=== PATIENT | male | born 1950 | race Caucasian/White ===

== ENCOUNTER 2017-11-08 22:01 | Inpatient (IN) | payer MEDICARE, OTHER ==
[~2017-11-08] VITALS: Ht 180.3 cm; Wt 109.2 kg
[~2017-11-08 22:01] MED LIST: CENTTAB9 PO; LOVA20TA PO
[2017-11-08 22:17] VITALS: BP 124/89; PULSE 98; RESP 18; TEMP 98.5; O2SAT 98
[2017-11-08] MEDS ORDERED: LISI-515 PO (23:00)
[2017-11-08] MEDS ORDERED: COQ-100C5 (23:00)
[2017-11-08] MEDS ORDERED: LOVA40TA PO (23:00)
[2017-11-08] MEDS ORDERED: SULF500T34 PO (23:00)
[2017-11-08] MEDS ORDERED: CENTCHW4 CHEW (23:00)
[2017-11-08] MEDS ORDERED: AMLO10TA2 PO (23:00)
[2017-11-08] MEDS ORDERED: PRED5TAB PO (23:00)
[2017-11-08] MEDS ORDERED: TAMS5CAP PO (23:01)
--- NOTE | 2017-11-08 23:06 | PD ---
HPI Chief Complaint: Fall Time Seen by Provider: 22:57 Travel History International Travel<30 days: No Contact w/Intl Traveler<30days: No Traveled to known affect area: No History of Present Illness HPI 67-year-old male presents for evaluation of right ankle pain. Prior to arrival he slipped and fell, injuring his right ankle. He has been unable to put any weight on his right ankle. Pain is a throbbing pain, constant, worse with movement. He reports abrasion to the right alonzo as well. Denies any other injuries and he has no other complaints at this time. PFSH Past Medical History Arthritis: No Asthma: No Autoimmune Disease: No Blood Disorders: No Heart Rhythm Problems: No Cancer: Yes (LEUKEMIA) Cardiovascular Problems: No High Cholesterol: Yes Chemotherapy: Yes Chest Pain: No Congestive Heart Failure: No COPD: No Diabetes: No Diminished Hearing: No Endocrine: No Gastrointestinal Disorders: No GERD: Yes (sometimes at night) Genitourinary: No Hiatal Hernia: No Heparin Induced Thrombocytopen: No Hypertension: No Immune Disorder: No Implanted Vascular Access Dvce: Yes Medical other: Yes (CHEMO FINISHED Sep.) Musculoskeletal: No Neurologic: No Psychiatric: No Reproductive: No Respiratory: No Immunizations Current: Yes Radiation Therapy: No Sickle Cell Disease: No Sleep Apnea: No Thyroid Disease: No Ulcer: No Tetanus Vaccination: Unknown Influenza Vaccination: No Past Surgical History Abdominal Surgery: No AICD: No Arteriovenous Shunt: No Cardiac Surgery: No Endocrine Surgery: Yes Eye Surgery: No Genitourinary Surgery: No Gynecologic Surgery: No Insulin Pump: No Joint Replacement: No Neurologic Surgery: No Oral Surgery: Yes Pacemaker: No Thoracic Surgery: No 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) Social History Alcohol Use: Yes (occ) Tobacco Use: Yes (QUIT ) Substance Use: No Allergies-Medications (Allergen,Severity, Reaction): Coded Allergies: No Known Allergies (Unverified Allergy, Unknown, 11/09/17) Reported Meds & Prescriptions Reported Meds & Active Scripts Active Reported Flomax (Tamsulosin HCl) 0.4 Mg Cap 0.4 Mg PO HS Sulfasalazine DR (Sulfasalazine) 500 Mg Tab 1,000 Mg PO BID Centrum (Multiple Vitamins W/ Minerals) 1 Chew 1 Tab CHEW DAILY Prednisone 5 Mg Tab 3 Mg PO DAILY Coq-10 Tr (Coenzyme Q10 (Ubidecarenone)) 100 Mg Cap Lovastatin 40 Mg Tab 40 Mg PO DAILY Lisinopril 20 Mg Tab 20 Mg PO DAILY Amlodipine (Amlodipine Besylate) 10 Mg Tab 10 Mg PO DAILY Review of Systems Except as stated in HPI: all other systems reviewed are Neg Physical Exam Narrative GENERAL: Well-nourished male who appears uncomfortable. SKIN: Warm and dry. Abrasion to the right alonzo. Ecchymosis to the medial lateral right ankle. HEAD: Atraumatic. Normocephalic. EYES: Pupils equal and round. No scleral icterus. No injection or drainage. ENT: No nasal bleeding or discharge. Mucous membranes pink and moist. NECK: Trachea midline. No JVD. CARDIOVASCULAR: Regular rate and rhythm. No murmur appreciated. RESPIRATORY: No accessory muscle use. Clear to auscultation. Breath sounds equal bilaterally. GASTROINTESTINAL: Abdomen soft, non-tender, nondistended. Hepatic and splenic margins not palpable. MUSCULOSKELETAL: Soft tissue swelling around the right ankle with associated generalized tenderness to palpation of the right ankle. The Achilles tendon is intact and nontender. Limited range of motion of the right ankle secondary to pain. 2+ dorsalis pedis pulse. Distal sensation is preserved. NEUROLOGICAL: Awake and alert. No obvious cranial nerve deficits. Motor grossly within normal limits. Normal speech. Data Data Last Documented VS Vital Signs Date Time Temp Pulse Resp B/P (MAP) Pulse Ox O2 Delivery O2 Flow Rate FiO2 11/08/17 23:50 96 20 154/80 (104) 96 Room Air 11/08/17 22:17 98.5 Orders Orders Tibia/Fibula (Ap/Lat) (11/08/17 ) Ankle, Complete ([id number]) (11/08/17 ) Ice/Cold Pack (11/08/17 23:03) Iv Access Insert/Monitor (11/08/17 23:03) Morphine Inj (Morphine Inj) (11/08/17 23:15) Ondansetron Inj (Zofran Inj) (11/08/17 23:15) Hydromorphone Pf Inj (Dilaudid Pf Inj) (11/09/17 00:30) Hydromorphone Pf Inj (Dilaudid Pf Inj) (11/09/17 00:30) Complete Blood Count With Diff (11/09/17 01:03) Basic Metabolic Panel (Bmp) (11/09/17 01:03) Act Partial Throm Time (Ptt) (11/09/17 01:03) Prothrombin Time / Inr (Pt) (11/09/17 01:03) Admit Order (Ed Use Only) (11/09/17 01:11) Consult Orthopedic (11/09/17 ) [facility] Medical Decision Making Medical Screen Exam Complete: Yes Emergency Medical Condition: Yes Medical Record Reviewed: Yes Interpretation(s) X-ray imaging reveals FINDINGS: Three view exam was performed of the right ankle. Bimalleolar fracture 3 distal diaphysis of the fibula as well as the base of the medial malleolus and a second avulsion fracture off the tip of the medial malleolus. There is some asymmetry of the ankle mortise. Mild regional soft tissue swelling. Differential Diagnosis Right ankle fracture, sprain, Lisfranc injury, dislocation Narrative Course X-ray imaging of the right ankle, tibia-fibula has been ordered. He will be given an ice pack, morphine, Zofran. X-ray imaging reveals a bimalleolar fracture. A Harris splint was applied. Discussed with Dr. Castorena who would like the patient admitted to the medicine team with consultation to himself. Discussed with the patient who is agreeable. Diagnosis Primary Impression: Bimalleolar fracture of right ankle Admitting Information Admitting Physician Requests: Víctor Stack Nov 08, 2017 23:06
[2017-11-08] MEDS ORDERED: ONDANSETRON HCL 4 MG/2 ML VIAL IV PUSH ONE (23:15)
[2017-11-08] MEDS ORDERED: MORPHINE SULFATE 4 MG/ML INJ IV PUSH ONE (23:15)
[2017-11-08 23:50] VITALS: BP 154/80; PULSE 96; RESP 20; O2SAT 96
--- NOTE | 2017-11-09 00:24 | RADRPT ---
EXAM DATE/TIME: 11/08/2017 23:13 [facility] COMPARISON: No previous studies available for comparison. INDICATIONS : Right ankle pain from a fall. MEDICAL HISTORY : Leukemia. Hypertension SURGICAL HISTORY : None. ENCOUNTER: Initial ACUITY: 1 day PAIN SCORE: 10/10 LOCATION: Right ankle FINDINGS: Two view examination of the right tibia demonstrates bimalleolar fracture involving the distal diaphy sis of the fibula as well as the base of the medial malleolus. Small avulsion fracture off the medial malleolar tip as well. CONCLUSION: Bimalleolar fracture as above. Al Haro MD on November 09, 2017 at 0:22 Board Certified Radiologist. This report was verified electronically.
--- NOTE | 2017-11-09 00:26 | RADRPT ---
EXAM DATE/TIME: 11/08/2017 23:21 [facility] COMPARISON: No previous studies available for comparison. INDICATIONS : Right ankle pain from a fall. MEDICAL HISTORY : Leukemia. Hypertension SURGICAL HISTORY : None. ENCOUNTER: Initial ACUITY: 1 day PAIN SCORE: 10/10 LOCATION: Right ankle FINDINGS: Three view exam was performed of the right ankle. Bimalleolar fracture 3 distal diaphysis of the fibu la as well as the base of the medial malleolus and a second avulsion fracture off the tip of the medi al malleolus. There is some asymmetry of the ankle mortise. Mild regional soft tissue swelling. CONCLUSION: Bimalleolar fracture as above. Al Haro MD on November 09, 2017 at 0:24 Board Certified Radiologist. This report was verified electronically.
[2017-11-09] MEDS ORDERED: HYDROmorphone HCL PF 1 MG/ML VIAL IV PUSH ONE (00:30)
[2017-11-09] MEDS ORDERED: HYDROmorphone HCL PF 2 MG/ML VIAL IV PUSH ONE (00:30)
[2017-11-09 01:40] LABS: AUTOMATED NEUTROPHIL # 7.6 TH/MM3 (1.8-7.7); BASOPHIL # 0.1 TH/MM3 (0-0.2); BASOPHIL % 0.5 % (0.0-2.0); EOSINOPHIL # 0.1 TH/MM3 (0-0.4); EOSINOPHIL % 1.3 % (0.0-4.0); HEMATOCRIT 42.2 % (39.0-51.0); HEMOGLOBIN 14.4 GM/DL (13.0-17.0); LYMPHOCYTE # 1.9 TH/MM3 (1.0-4.8); MEAN CELL VOLUME 93.8 FL (80.0-100.0); MEAN CORPUSCULAR HGB CONC 34.1 % (32.0-36.0); MEAN PLATELET VOLUME 8.3 FL (7.0-11.0); MONO % 9.4 % (0.0-8.0); NEUT % 70.8 % (16.0-70.0); PLATELET COUNT 191 TH/MM3 (150-450); RED CELL DISTRIBUTION WIDTH 13.8 % (11.6-17.2); WHITE BLOOD COUNT 10.7 TH/MM3 (4.0-11.0)
[2017-11-09] MEDS: SODIUM CHLOR 0.9% 1000 ML INJ 1,000 ML IV SCH ×4 (01:42→20:34)
[2017-11-09] MEDS ORDERED: LACTULOSE SYRUP 20 GM/30 ML CUP PO PRN (01:45)
[2017-11-09] MEDS ORDERED: SODIUM CHLORIDE 0.9% FLUSH 10 ML FLUSH IV FLUSH PRN (01:45)
[2017-11-09] MEDS ORDERED: MAGNESIUM HYDROXIDE SUSP 30 ML CUP PO PRN ×2 (01:45→10:30)
[2017-11-09] MEDS ORDERED: ACETAMINOPHEN 325 MG TAB PO PRN (01:45)
[2017-11-09] MEDS ORDERED: NALOXONE HCL 0.4 MG/ML AMP IV PUSH PRN ×2 (01:45→10:30)
[2017-11-09] MEDS ORDERED: BISACODYL 10 MG SUPP RECTAL PRN (01:45)
[2017-11-09] MEDS ORDERED: SENNOSIDES 8.6 MG TAB PO PRN (01:45)
[2017-11-09] MEDS ORDERED: ONDANSETRON HCL 4 MG/2 ML VIAL IVP PRN ×2 (01:45→10:30)
--- NOTE | 2017-11-09 01:51 | HHI.HP ---
[facility] Primary Care Physician Korin Burkett MD Admission Diagnosis Right ankle fracture Diagnoses: Travel History International Travel<30 Days: No Contact w/Intl Traveler <30 Da: No Traveled to Known Affected Are: No History of Present Illness 67-year-old male with a past medical history significant for history of leukemia , polymyalgia rheumatica, hypertension and hyperlipidemia presents to the emergency department for evaluation of right ankle pain. The patient reports he was playing with his grandsons when he slipped on a wet floor. He states his foot went underneath the recliner and his grandson sat forward in the recliner crushing his foot. The patient reports that he fell to the ground and attempted to stand up. At that time he had excruciating pain in his right ankle and came in to the emergency department for further evaluation. He denies any other symptoms such as shortness of breath, chest pain, nausea/ vomiting/diarrhea, illness, dysuria. Review of Systems Except as stated in HPI: all other systems reviewed are Neg Past Family Social History Past Medical History History of leukemia in remission for the past 3 years Polymyalgia rheumatica Hypertension Hyperlipidemia Past Surgical History Tonsillectomy Multiple procedures including port placement and bone marrow biopsy associated with leukemia Reported Medications Reported Meds & Active Scripts Active Reported Flomax (Tamsulosin HCl) 0.4 Mg Cap 0.4 Mg PO HS Sulfasalazine DR (Sulfasalazine) 500 Mg Tab 1,000 Mg PO BID Centrum (Multiple Vitamins W/ Minerals) 1 Chew 1 Tab CHEW DAILY Prednisone 5 Mg Tab 3 Mg PO DAILY Coq-10 Tr (Coenzyme Q10 (Ubidecarenone)) 100 Mg Cap Lovastatin 40 Mg Tab 40 Mg PO DAILY Lisinopril 20 Mg Tab 20 Mg PO DAILY Amlodipine (Amlodipine Besylate) 10 Mg Tab 10 Mg PO DAILY Allergies: Coded Allergies: No Known Allergies (Unverified Allergy, Unknown, 11/09/17) Family History Father with CAD Social History Quit smoking in 2013. Denies alcohol and illicit drugs. Physical Exam Vital Signs Vital Signs Date Time Temp Pulse Resp B/P (MAP) Pulse Ox O2 Delivery O2 Flow Rate FiO2 3/17/18 23:50 96 20 154/80 (104) 96 Room Air 11/08/17 22:17 98.5 98 18 124/89 (101) 98 Physical Exam GENERAL: Obese, male sitting in bed SKIN: No rashes, ecchymoses or lesions. Cool and dry. HEAD: Atraumatic. Normocephalic. No temporal or scalp tenderness. EYES: Pupils equal round and reactive. Extraocular motions intact. No scleral icterus. No injection or drainage. ENT: Nose without bleeding, purulent drainage or septal hematoma. Throat without erythema, tonsillar hypertrophy or exudate. Uvula midline. Airway patent. NECK: Trachea midline. No JVD or lymphadenopathy. Supple, nontender, no meningeal signs. CARDIOVASCULAR: Regular rate and rhythm without murmurs, gallops, or rubs. RESPIRATORY: Clear to auscultation. Breath sounds equal bilaterally. No wheezes , rales, or rhonchi. GASTROINTESTINAL: Abdomen soft, non-tender, nondistended. No hepato-splenomegaly , or palpable masses. No guarding. MUSCULOSKELETAL: Extremities without clubbing, cyanosis, or edema. No calf tenderness. Right leg splinted, neurovascularly intact. Able to wiggle the toes of his right foot. NEUROLOGICAL: Awake and alert. Cranial nerves II through XII intact. Motor and sensory grossly within normal limits. Normal speech. Laboratory Laboratory Tests Test 11/09/17 01:10 White Blood Count 10.7 Red Blood Count 4.50 Hemoglobin 14.4 Hematocrit 42.2 Mean Corpuscular Volume 93.8 Mean Corpuscular Hemoglobin 32.0 Mean Corpuscular Hemoglobin Concent 34.1 Red Cell Distribution Width 13.8 Platelet Count 191 Mean Platelet Volume 8.3 Neutrophils (%) (Auto) 70.8 Lymphocytes (%) (Auto) 18.0 Monocytes (%) (Auto) 9.4 Eosinophils (%) (Auto) 1.3 Basophils (%) (Auto) 0.5 Neutrophils # (Auto) 7.6 Lymphocytes # (Auto) 1.9 Monocytes # (Auto) 1.0 Eosinophils # (Auto) 0.1 Basophils # (Auto) 0.1 CBC Comment DIFF FINAL Differential Comment Result Diagram: 11/09/17 0110 Caprini VTE Risk Assessment Caprini VTE Risk Assessment: Mod/High Risk (score >= 2) Caprini Risk Assessment Model Point Value = 1 Point Value = 2 Point Value = 3 Point Value = 5 Age 41-60 Minor surgery BMI > 25 kg/m2 Swollen legs Varicose veins or History of unexplained or recurrent spontaneous Oral contraceptives or hormone replacement Sepsis (< 1 month) Serious lung disease, including pneumonia (< 1 month) Abnormal pulmonary function Acute myocardial infarction Congestive heart failure (< 1 month) History of inflammatory bowel disease Medical patient at bed rest Age 61-74 Arthroscopic surgery Major open surgery (> 45 min) Laparoscopic surgery (> 45 min) Malignancy Confined to bed (> 72 hours) Immobilizing plaster cast Central venous access Age >= 75 History of VTE Family history of VTE Factor V Leiden Prothrombin [id number] Lupus anticoagulant Anticardiolipin antibodies Elevated serum homocysteine Heparin-induced thrombocytopenia Other congenital or acquired thrombophilia Stroke (< 1 month) Elective arthroplasty Hip, pelvis, or leg fracture Acute spinal cord injury (< 1 month) Prophylaxis Regimen Total Risk Factor Score Risk Level Prophylaxis Regimen 0-1 Low Early ambulation 2 Moderate Order ONE of the following: *Sequential Compression Device (SCD) *Heparin 5000 units SQ BID 3-4 Higher Order ONE of the following medications: *Heparin 5000 units SQ TID *Enoxaparin/Lovenox 40 mg SQ daily (WT < 150 kg, CrCl > 30 mL/min) *Enoxaparin/Lovenox 30 mg SQ daily (WT < 150 kg, CrCl > 10-29 mL/min) *Enoxaparin/Lovenox 30 mg SQ BID (WT < 150 kg, CrCl > 30 mL/min) AND/OR *Sequential Compression Device (SCD) 5 or more Highest Order ONE of the following medications: *Heparin 5000 units SQ TID (Preferred with Epidurals) *Enoxaparin/Lovenox 40 mg SQ daily (WT < 150 kg, CrCl > 30 mL/min) *Enoxaparin/Lovenox 30 mg SQ daily (WT < 150 kg, CrCl > 10-29 mL/min) *Enoxaparin/Lovenox 30 mg SQ BID (WT < 150 kg, CrCl > 30 mL/min) AND *Sequential Compression Device (SCD) Assessment and Plan Assessment and Plan Assessment/plan: 1. Bimalleolar right ankle fracture Status post trauma Dilaudid for pain Orthopedic surgery consulted, appreciate assistance Nothing by mouth 2. Polymyalgia rheumatica Continuing home medications 3. Hypertension/hyperlipidemia Continue home medications FEN NPO Electrolytes: BMP pending, monitor and replete when necessary NS at 125 cc/hr Holding for aquatic anticoagulation in anticipation of operative intervention Physician Certification 2 Midnight Certification Type: Admission for Inpatient Services Order for Inpatient Services The services are ordered in accordance with Medicare regulations or non- Medicare payer requirements, as applicable. In the case of services not specified as inpatient-only, they are appropriately provided as inpatient services in accordance with the 2-midnight benchmark. Estimated LOS (days): 2 2 days is the estimated time the patient will need to remain in the hospital, assuming treatment plan goals are met and no additional complications. Post-Hospital Plan: Not yet determined Andressa Maravilla MD Nov 09, 2017 01:51
[2017-11-09 01:59] LABS: BICARBONATE 29.1 MEQ/L (21.0-32.0); CALCIUM 8.6 MG/DL (8.5-10.1); CREATININE 1.34 MG/DL (0.60-1.30)
[2017-11-09 02:08] LABS: PROTHROMBIN TIME - PATIENT 10.3 SEC (9.8-11.6)
[2017-11-09] MEDS: HYDROmorphone HCL PF 2 MG/ML VIAL IV PUSH PRN ×3 (02:32→22:44)
[2017-11-09] MEDS ORDERED: SODIUM CHLORID 0.9% 500 ML IV PRN (03:15)
[2017-11-09] MEDS ORDERED: CHLORHEXIDINE GLUCONATE 2 % 1 PACK (2 CLOTHS) TOPICAL PRN (03:15)
[2017-11-09] MEDS ORDERED: METOPROLOL TARTRATE 25 MG TAB PO PRN (03:15)
[2017-11-09] MEDS ORDERED: INSULIN HUMAN REGULAR 1,000 UNITS/10 ML VIAL SQ PRN (03:15)
[2017-11-09] MEDS ORDERED: POVIDONE IODINE 5% (ANTISEPSIS KIT) 4 APPLICATIONS EACH NARE PRN (03:15)
[2017-11-09] MEDS ORDERED: LACTATED RINGER'S 1000 ML IV PRN (03:15)
[2017-11-09 04:00] VITALS: BP 127/64; PULSE 97; RESP 20; TEMP 97.9; O2SAT 95
[2017-11-09] MEDS: PRAVASTATIN SOD 40 MG TAB PO SCH (07:34)
[2017-11-09] MEDS: LISINOPRIL 20 MG TAB PO SCH (07:34)
[2017-11-09 08:00] VITALS: BP 134/74; PULSE 86; RESP 18; TEMP 97.7; O2SAT 93
[2017-11-09] MEDS ORDERED: GENTAMICIN SULFATE 80 MG/2 ML VIAL ONE (08:10)
[2017-11-09] MEDS ORDERED: DOCUSATE SODIUM 50 MG/SENNA 8.6 MG TAB PO SCH (09:00)
[2017-11-09] MEDS: SODIUM CHLORIDE 0.9% FLUSH 10 ML FLUSH IV FLUSH SCH ×2 (09:00→20:39)
--- NOTE | 2017-11-09 10:18 | PD.CONS ---
HPI Service Orthopedic Surgeons Consult Requested By Andressa Maravilla Reason for Consult Unstable fracture of the right ankle Primary Care Physician Korin Burkett MD Admission Diagnosis Right ankle fracture Diagnoses: Chief Complaint: Right ankle pain and inability to ambulate History of Present Illness This patient is a 67-year-old white male who was playing around with his grandson. He slipped and fell sustaining an injury to his right ankle. He had no loss of consciousness. He was unable to bear weight because of such significant pain in the ankle. He presented to [facility]. X-ray showed evidence of a trimalleolar fracture subluxation of the right ankle. I have been asked to see him in consultation regarding the same Review of Systems Constitutional: DENIES: Diaphoretic episodes, Fatigue, Fever, Weight gain, Weight loss, Chills, Dizziness, Change in appetite, Night Sweats Endocrine: DENIES: Heat/cold intolerance, Polydipsia, Polyuria, Polyphagia Eyes: DENIES: Blurred vision, Diplopia, Eye inflammation, Eye pain, Vision loss , Photosensitivity, Double Vision Ears, nose, mouth, throat: DENIES: Tinnitus, Hearing loss, Vertigo, Nasal discharge, Oral lesions, Throat pain, Hoarseness, Ear Pain, Running Nose, Epistaxis, Sinus Pain, Toothache, Odynophagia Respiratory: DENIES: Apneas, Cough, Snoring, Wheezing, Hemoptysis, Sputum production, Shortness of breath Cardiovascular: DENIES: Chest pain, Palpitations, Syncope, Dyspnea on Exertion , PND, Lower Extremity Edema, Orthopnea, Claudication Gastrointestinal: DENIES: Abdominal pain, Black stools, Bloody stools, Constipation, Diarrhea, Nausea, Vomiting, Difficulty Swallowing, Anorexia Genitourinary: DENIES: Sexual dysfunction, Urinary frequency, Urinary incontinence, Urgency, Hematuria, Dysuria, Nocturia, Penile Discharge, Testicular Pain, Testicular Swelling Musculoskeletal: DENIES: Joint pain, Muscle aches, Stiffness, Joint Swelling, Back pain, Neck pain Integumentary: DENIES: Abnormal pigmentation, Nail changes, Pruritus, Rash Hematologic/lymphatic: DENIES: Bruising, Lymphadenopathy Immunologic/allergic: DENIES: Eczema, Urticaria Neurologic: DENIES: Abnormal gait, Headache, Localized weakness, Paresthesias, Seizures, Speech Problems, Tremor, Poor Balance Psychiatric: DENIES: Anxiety, Confusion, Mood changes, Depression, Hallucinations, Agitation, Suicidal Ideation, Homicidal Ideation, Delusions Past Family Social History Past Medical History History of leukemia in remission for the past 3 years Polymyalgia rheumatica Hypertension Hyperlipidemia Past Surgical History Tonsillectomy Multiple procedures including port placement and bone marrow biopsy associated with leukemia Allergies: Coded Allergies: No Known Allergies (Unverified Allergy, Unknown, 11/09/17) Active Ordered Medications Current Medications Medications (Trade) Dose Ordered Sig/Merlene Route Start Time Stop Time Status Last Admin Sodium Chloride 1,000 ml @ 125 mls/hr Q8H IV 11/09/17 01:42 11/09/17 01:42 (NS Flush) 2 ml UNSCH PRN IV FLUSH 11/09/17 01:45 (NS Flush) 2 ml BID IV FLUSH 11/09/17 09:00 (Tylenol) 650 mg Q4H PRN PO 11/09/17 01:45 (Zofran Inj) 4 mg Q6H PRN IVP 11/09/17 01:45 (Narcan Inj) 0.4 mg UNSCH PRN IV PUSH 11/09/17 01:45 (Maxine-Colace) 1 tab BID PO 11/09/17 09:00 11/09/17 07:34 (Milk Of Magnesia Liq) 30 ml Q12H PRN PO 11/09/17 01:45 (Senokot) 17.2 mg Q12H PRN PO 11/09/17 01:45 (Dulcolax Supp) 10 mg DAILY PRN RECTAL 11/09/17 01:45 (Lactulose Liq) 30 ml DAILY PRN PO 11/09/17 01:45 (Dilaudid Pf Inj) 2 mg Q3H PRN IV PUSH 11/09/17 01:45 11/09/17 02:32 (Norvasc) 10 mg DAILY PO 11/09/17 09:00 11/09/17 07:34 (Prinivil) 20 mg DAILY PO 11/09/17 09:00 11/09/17 07:34 (Pravachol) 40 mg DAILY PO 3/18/18 09:00 11/09/17 07:34 (Deltasone) 3 mg DAILY PO 11/09/17 09:00 (Azulfidine Ec) 1,000 mg BID PO 11/09/17 09:00 (Flomax) 0.4 mg HS PO 11/09/17 21:00 Lactated Ringer's 1,000 ml @ 30 mls/hr Q24H PRN IV 11/09/17 03:15 11/12/17 03:14 Sodium Chloride 500 ml @ 30 mls/hr [id number] PRN IV 11/09/17 03:15 11/12/17 03:14 (Lopressor) 25 mg STORAGE [employer]INEER PRN PO 11/09/17 03:15 11/12/17 03:14 (Betadine 5% Antisepsis Kit) 1 applic STORAGE ENGINEER PRN EACH NARE 11/09/17 03:15 11/12/17 03:14 (Chlorhexidine 2% Cloth) 3 pack STORAGE ENGINEER PRN TOPICAL 11/09/17 03:15 11/12/17 03:14 (NovoLIN R INJ) See Protocol Table ... STORAGE ENGINEER PRN SQ 11/09/17 03:15 11/12/17 03:14 Reported Meds & Active Scripts Active Reported Flomax (Tamsulosin HCl) 0.4 Mg Cap 0.4 Mg PO HS Sulfasalazine DR (Sulfasalazine) 500 Mg Tab 1,000 Mg PO BID Centrum (Multiple Vitamins W/ Minerals) 1 Chew 1 Tab CHEW DAILY Prednisone 5 Mg Tab 3 Mg PO DAILY Coq-10 Tr (Coenzyme Q10 (Ubidecarenone)) 100 Mg Cap Lovastatin 40 Mg Tab 40 Mg PO DAILY Lisinopril 20 Mg Tab 20 Mg PO DAILY Amlodipine (Amlodipine Besylate) 10 Mg Tab 10 Mg PO DAILY Family History Father with CAD Social History Quit smoking in 2013. Denies alcohol and illicit drugs. Physical Exam Vital Signs Vital Signs Date Time Temp Pulse Resp B/P (MAP) Pulse Ox O2 Delivery O2 Flow Rate FiO2 11/09/17 08:00 97.7 86 18 134/74 (94) 93 11/09/17 04:00 97.9 97 20 127/64 (85) 95 11/08/17 23:50 96 20 154/80 (104) 96 Room Air 11/08/17 22:17 98.5 98 18 124/89 (101) 98 Physical Exam HEENT: Normocephalic atraumatic pupils equal round reactive. NECK: Supple. No abnormal masses. Full range of motion. CHEST: Clear to auscultation with no rales or rhonchi's or wheezes. HEART: Regular rate and rhythm. No murmurs. ABDOMEN: Soft, nontender, no masses. Normal active bowel sounds. GENITOURINARY: Deferred MUSCULOSKELETAL: He is in a splint. There is some external rotation deformity of the right ankle. Sensation is normal. He wiggles his toes. Cap refill is satisfactory. Laboratory Laboratory Tests Test 11/09/17 01:10 White Blood Count 10.7 Red Blood Count 4.50 Hemoglobin 14.4 Hematocrit 42.2 Mean Corpuscular Volume 93.8 Mean Corpuscular Hemoglobin 32.0 Mean Corpuscular Hemoglobin Concent 34.1 Red Cell Distribution Width 13.8 Platelet Count 191 Mean Platelet Volume 8.3 Neutrophils (%) (Auto) 70.8 Lymphocytes (%) (Auto) 18.0 Monocytes (%) (Auto) 9.4 Eosinophils (%) (Auto) 1.3 Basophils (%) (Auto) 0.5 Neutrophils # (Auto) 7.6 Lymphocytes # (Auto) 1.9 Monocytes # (Auto) 1.0 Eosinophils # (Auto) 0.1 Basophils # (Auto) 0.1 CBC Comment DIFF FINAL Differential Comment Prothrombin Time 10.3 Prothromb Time International Ratio 1.0 Activated Partial Thromboplast Time 22.6 Blood Urea Nitrogen 17 Creatinine 1.34 Random Glucose 150 Calcium Level 8.6 Sodium Level 140 Potassium Level 3.3 Chloride Level 101 Carbon Dioxide Level 29.1 Anion Gap 10 Estimat Glomerular Filtration Rate 53 Result Diagram: 11/09/17 0110 11/09/17 0110 Imaging Review of the x-rays and review of the radiologist's interpretation shows evidence of a trimalleolar fracture of the right ankle with a small posterior malleolar fragment and mild comminution of the medial malleolus Assessment & Plan Assessment and Plan Trimalleolar fracture of the right ankle. PLAN: Surgical treatment is recommended: Open treatment internal fixation right ankle fracture with possible internal fixation of the posterior malleolar fragment. Consent: There are risks with this injury and surgery including infection, bleeding, loss of motion, continued pain, need for further surgery, neurologic or vascular injury. He understands these issues and wishes to proceed forward with surgery as outlined above. Surgery today when time is available Jose Gonzalez MD Nov 09, 2017 10:18
--- NOTE | 2017-11-09 10:22 | PD.OP ---
cc: Jose Gonzalez MD Operative Report Date of Surgery: Nov 09, 2017 Preoperative Diagnosis: Trimalleolar fracture, right ankle Postoperative Diagnosis: Same Procedure: Open treatment internal fixation right ankle trimalleolar fracture without fixation of the posterior malleolus Anesthesia: Gen. Surgeon: Jose Gonzalez Mending Carrier(s): LESIA Hay Operation and Findings: EBL: 50 cc INDICATION: Patient is a 67-year-old male who sustained the above fracture late yesterday. He is felt to be a candidate for surgical treatment. NOTE: Deisi Hay PA-C was present for the entire surgical procedure as my residential real estate assistant. In my medical opinion her skill and care was necessary for the proper management of this patient. PROCEDURE: The patient brought to the operating room and anesthetized in the supine position. The right leg was visualized under fluoroscopy. Antibiotics were given within an one hour time window and a timeout was done. The lateral side was approached. After exsanguination the tourniquet was inflated to 250 mmHg. A longitudinal incision was made. The fracture was exposed. Multiple clamps used to hold this in proper position. A proper length Synthes one third tubular plate was positioned and held. Multiple screws were placed as well as a lag screw. Overall alignment was satisfactory case was noted. The wound was closed in layers with 2-0 Vicryl 3-0 Vicryl and 3 -0 nylon mattress sutures. A medial incision was made. A clamp was used to hold the medial malleolus and anatomic alignment. A cannulated screw system was utilized. 2 pins were placed in good fashion and position. There measured carefully. They were drilled and the proper length screws were advanced across the wire across the fracture. The fracture was reduced anatomically. The wound was closed with 3- 0 nylon in a mattress fashion The wound was irrigated copiously and hemostasis was controlled. Intraoperative imaging showed anatomic reduction. Alignment was satisfactory. A posterior splint was fitted and applied. The patient was awakened and taken to recovery room satisfactory condition. The sponge count and needle count and sponge counts were all correct FINDINGS: There is evidence of comminution at the very tip of the medial malleolus. The rest of the fracture was relatively transverse and non- comminuted. The distal tip fracture was not fixated as it was too small to consider that fixation. The lateral malleolus fracture was mildly comminuted. The final fixation was felt to be excellent. There was no complication that was appreciated Jose Gonzalez MD Nov 09, 2017 10:22
[2017-11-09] MEDS ORDERED: HYDR-3580 PO (10:23)
[2017-11-09] MEDS ORDERED: ECASA81 PO (10:23)
[2017-11-09] MEDS ORDERED: MORPHINE SULFATE 8 MG/ML INJ IV PUSH PRN (10:30)
[2017-11-09] MEDS ORDERED: diphenhydrAMINE HCL 25 MG CAP PO PRN (10:30)
[2017-11-09] MEDS ORDERED: ACETAMINOPHEN/HYDROcodone 325 MG/7.5 MG TAB PO PRN (10:30)
[2017-11-09] MEDS ORDERED: DO NOT ADM ANY ANTICOAGULANT DRUGS PRN (10:30)
[2017-11-09] MEDS ORDERED: ASPIRIN EC 81 MG TABEC PO ONE (10:30)
[2017-11-09] MEDS: LACTATED RINGER'S 1000 ML INJ 1,000 ML IV SCH ×3 (10:30→20:39)
[2017-11-09] MEDS ORDERED: *MEPERIDINE 25 MG INJ VIAL PERIprocedural Use ONLY ONE (10:57)
[2017-11-09] MEDS ORDERED: Post-op Orders (for Pharmacy) XX ONE (11:00)
[2017-11-09] MEDS ORDERED: MIDAZOLAM HCL 2 MG/2 ML VIAL ONE (11:02)
[2017-11-09] MEDS ORDERED: MORPHINE SULFATE 4 MG/ML INJ ONE (11:02)
--- NOTE | 2017-11-09 11:20 | RADRPT ---
EXAM DATE/TIME: 11/09/2017 09:58 [facility] COMPARISON: ANKLE RIGHT COMPLETE ([id number]), November 08, 2017, 23:21. INDICATIONS : Right ankle ORIF. MEDICAL HISTORY : None. SURGICAL HISTORY : None. ENCOUNTER: Initial ACUITY: 1 day PAIN SCORE: Non-responsive. LOCATION: Right Ankle. FINDINGS: Fluoroscopic views of the postoperative right ankle demonstrate internal fixation of the distal fibul ar fracture and medial malleolus fracture. Good anatomic alignment of the osseous structures. Posteri or malleolus fracture is visible and demonstrates near-anatomic alignment. CONCLUSION: Status post ORIF of the distal fibula and tibia fracture with good anatomic alignment. Selene Leach MD on November 09, 2017 at 11:17 Board Certified Radiologist. This report was verified electronically.
[2017-11-09] MEDS ORDERED: ceFAZolin INJ 1,000 MG VIAL IV ONE (12:00)
[2017-11-09] MEDS ORDERED: LACTATED RINGER'S 1000 ML INJ 1,000 ML IV ONE (12:00)
[2017-11-09] MEDS ORDERED: LIDOCAINE HCL 1% PF 5 ML SYRINGE OTHER ONE (12:00)
[2017-11-09] MEDS ORDERED: ONDANSETRON HCL 4 MG/2 ML VIAL IV ONE (12:00)
[2017-11-09] MEDS ORDERED: PHENYLEPH/NS 1000 MCG/10 ML SYR IV ONE (12:00)
[2017-11-09] MEDS ORDERED: PROPOFOL 200 MG/20 ML AMP IV ONE (12:00)
[2017-11-09] MEDS ORDERED: ePHEDrine/NS 25 MG/5 ML SYRINGE IV ONE (12:00)
[2017-11-09] MEDS: predniSONE 1 MG TAB PO SCH (12:28)
[2017-11-09] MEDS: sulfaSALAzine EC 500 MG TABEC PO SCH ×2 (12:29→20:37)
[2017-11-09] MEDS: CALCIUM/VITAMIN D 250 MG/125 U TAB PO SCH ×2 (12:32→17:25)
[2017-11-09] MEDS: ACETAMINOPHEN/HYDROcodone 325 MG/7.5 MG TAB PO PRN ×3 (12:34→21:55)
--- NOTE | 2017-11-09 12:43 | HHI.PR ---
Subjective Remarks 67-year-old male with a past medical history significant for history of leukemia , polymyalgia rheumatica, hypertension and hyperlipidemia presents to the emergency department for evaluation of right ankle pain. The patient reports he was playing with his grandsons when he slipped on a wet floor. He states his foot went underneath the recliner and his grandson sat forward in the recliner crushing his foot. The patient reports that he fell to the ground and attempted to stand up. At that time he had excruciating pain in his right ankle and came in to the emergency department for further evaluation. He denies any other symptoms such as shortness of breath, chest pain, nausea/ vomiting/diarrhea, illness, dysuria. 3-18 status post surgery on the right lower extremity Work with physical therapy and occupational therapy Probable discharge within the next 48-72 hours A.m. labs Replaced Objective Vitals Vital Signs Date Time Temp Pulse Resp B/P (MAP) Pulse Ox O2 Delivery O2 Flow Rate FiO2 11/09/17 11:45 84 16 126/64 (84) 96 Nasal Cannula 4 11/09/17 11:30 88 16 121/70 (87) 96 Nasal Cannula 4 11/09/17 11:15 89 16 126/73 (90) 97 Nasal Cannula 4 11/09/17 11:00 89 16 130/67 (88) 94 Nasal Cannula 4 11/09/17 10:53 98.6 90 16 139/69 (92) 91 Nasal Cannula 4 11/09/17 08:00 97.7 86 18 134/74 (94) 93 11/09/17 04:00 97.9 97 20 127/64 (85) 95 11/08/17 23:50 96 20 154/80 (104) 96 Room Air 11/08/17 22:17 98.5 98 18 124/89 (101) 98 I/O 11/08/17 11/08/17 11/08/17 11/09/17 11/09/17 11/09/17 06:59 14:59 22:59 06:59 14:59 22:59 Intake Total 300 ml 1200 ml Output Total 250 ml 20 ml Balance 50 ml 1180 ml Intake Oral 0 ml IV Total 300 ml Other 1200 ml Output Urine Total 250 ml Estimated Blood Loss 20 ml # Bowel Movements 0 Result Diagram: 11/09/17 0110 11/09/17 0110 Other Results Laboratory Tests Test 11/09/17 01:10 White Blood Count 10.7 TH/MM3 Red Blood Count 4.50 MIL/MM3 Hemoglobin 14.4 GM/DL Hematocrit 42.2 % Mean Corpuscular Volume 93.8 FL Mean Corpuscular Hemoglobin 32.0 PG Mean Corpuscular Hemoglobin Concent 34.1 % Red Cell Distribution Width 13.8 % Platelet Count 191 TH/MM3 Mean Platelet Volume 8.3 FL Neutrophils (%) (Auto) 70.8 % Lymphocytes (%) (Auto) 18.0 % Monocytes (%) (Auto) 9.4 % Eosinophils (%) (Auto) 1.3 % Basophils (%) (Auto) 0.5 % Neutrophils # (Auto) 7.6 TH/MM3 Lymphocytes # (Auto) 1.9 TH/MM3 Monocytes # (Auto) 1.0 TH/MM3 Eosinophils # (Auto) 0.1 TH/MM3 Basophils # (Auto) 0.1 TH/MM3 CBC Comment DIFF FINAL Differential Comment Prothrombin Time 10.3 SEC Prothromb Time International Ratio 1.0 RATIO Activated Partial Thromboplast Time 22.6 SEC Blood Urea Nitrogen 17 MG/DL Creatinine 1.34 MG/DL Random Glucose 150 MG/DL Calcium Level 8.6 MG/DL Sodium Level 140 MEQ/L Potassium Level 3.3 MEQ/L Chloride Level 101 MEQ/L Carbon Dioxide Level 29.1 MEQ/L Anion Gap 10 MEQ/L Estimat Glomerular Filtration Rate 53 ML/MIN Imaging Last Impressions Tibia/Fibula X-Ray 11/08/17 0000 Signed Impressions: Service Date/Time: Wednesday, November 08, 2017 23:13 - CONCLUSION: Bimalleolar fracture as above. Al Haro MD Ankle X-Ray 11/08/17 0000 Signed Impressions: Service Date/Time: Wednesday, November 08, 2017 23:21 - CONCLUSION: Bimalleolar fracture as above. Al Haro MD Objective Remarks GENERAL: Awake alert oriented 3 talkative and cooperative appears to be in no acute distress SKIN: Warm and dry. HEAD: Atraumatic. Normocephalic. EYES: Pupils equal and round. No scleral icterus. No injection or drainage. Extraocular muscles intact ENT: No nasal bleeding or discharge. Mucous membranes pink and moist. Tongue is midline NECK: Trachea midline. No JVD. Supple CARDIOVASCULAR: Regular rate and rhythm. S1-S2 no S3-S4 RESPIRATORY: No accessory muscle use. Clear to auscultation. Breath sounds equal bilaterally. GASTROINTESTINAL: Abdomen soft, non-tender, nondistended. Hepatic and splenic margins not palpable. MUSCULOSKELETAL: Extremities without clubbing, cyanosis, or edema. No obvious deformities. Right lower extremity dressed NEUROLOGICAL: Awake and alert. No obvious cranial nerve deficits. Motor grossly within normal limits. Five out of 5 muscle strength in the arms and legs. Normal speech. PSYCHIATRIC: Appropriate mood and affect; insight and judgment normal. Procedures Date of Surgery: Nov 09, 2017 Preoperative Diagnosis: Trimalleolar fracture, right ankle Postoperative Diagnosis: Same Procedure: Open treatment internal fixation right ankle trimalleolar fracture without fixation of the posterior malleolus Anesthesia: Gen. Surgeon: Jose Gonzalez Animal Caregiver(s): LESIA Hay Operation and Findings: EBL: 50 cc INDICATION: Patient is a 67-year-old male who sustained the above fracture late yesterday. He is felt to be a candidate for surgical treatment. NOTE: Deisi Hay PA-C was present for the entire surgical procedure as my first press operator. In my medical opinion her skill and care was necessary for the proper management of this patient. PROCEDURE: The patient brought to the operating room and anesthetized in the supine position. The right leg was visualized under fluoroscopy. Antibiotics were given within an one hour time window and a timeout was done. The lateral side was approached. After exsanguination the tourniquet was inflated to 250 mmHg. A longitudinal incision was made. The fracture was exposed. Multiple clamps used to hold this in proper position. A proper length Synthes one third tubular plate was positioned and held. Multiple screws were placed as well as a lag screw. Overall alignment was satisfactory case was noted. The wound was closed in layers with 2-0 Vicryl 3-0 Vicryl and 3 -0 nylon mattress sutures. A medial incision was made. A clamp was used to hold the medial malleolus and anatomic alignment. A cannulated screw system was utilized. 2 pins were placed in good fashion and position. There measured carefully. They were drilled and the proper length screws were advanced across the wire across the fracture. The fracture was reduced anatomically. The wound was closed with 3- 0 nylon in a mattress fashion The wound was irrigated copiously and hemostasis was controlled. Intraoperative imaging showed anatomic reduction. Alignment was satisfactory. A posterior splint was fitted and applied. The patient was awakened and taken to recovery room satisfactory condition. The sponge count and needle count and sponge counts were all correct FINDINGS: There is evidence of comminution at the very tip of the medial malleolus. The rest of the fracture was relatively transverse and non- comminuted. The distal tip fracture was not fixated as it was too small to consider that fixation. The lateral malleolus fracture was mildly comminuted. The final fixation was felt to be excellent. There was no complication that was appreciated Jose Gonzalez MD Medications and IVs Current Medications Morphine Sulfate (Morphine Inj) 4 mg ONCE ONCE IV PUSH Last administered on at 23:27; Start 11/08/17 at 23:15; Stop 11/08/17 at 23:16; Status DC Ondansetron HCl (Zofran Inj) 4 mg ONCE ONCE IV PUSH Last administered on at 23:26; Start 11/08/17 at 23:15; Stop 11/08/17 at 23:16; Status DC Hydromorphone HCl (Dilaudid Pf Inj) 1 mg ONCE ONCE IV PUSH ; Start 11/09/17 at 00:30; Stop 11/09/17 at 00:30; Status DC Hydromorphone HCl (Dilaudid Pf Inj) 1 mg ONCE ONCE IV PUSH Last administered on 11/09/17at 00:43; Start 11/09/17 at 00:30; Stop 11/09/17 at 00:31; Status DC Sodium Chloride 1,000 ml @ 125 mls/hr Q8H IV Last administered on 11/09/17at 01 :42; Start 11/09/17 at 01:42 Sodium Chloride (NS Flush) 2 ml UNSCH PRN IV FLUSH FLUSH AFTER USING IV ACCESS ; Start 11/09/17 at 01:45 Sodium Chloride (NS Flush) 2 ml BID IV FLUSH ; Start 11/09/17 at 09:00 Acetaminophen (Tylenol) 650 mg Q4H PRN PO TEMP > 100.4; Start 11/09/17 at 01:45 Ondansetron HCl (Zofran Inj) 4 mg Q6H PRN IVP NAUSEA OR VOMITING; Start at 01:45 Naloxone HCl (Narcan Inj) 0.4 mg UNSCH PRN IV PUSH SEE LABEL COMMENTS; Start at 01:45; Status Cancel Senna/Docusate Sodium (Maxine-Colace) 1 tab BID PO Last administered on at 07:34; Start 11/09/17 at 09:00; Stop 11/09/17 at 11:47; Status DC Magnesium Hydroxide (Milk Of Magnesia Liq) 30 ml Q12H PRN PO Mild constipation ; Start 11/09/17 at 01:45 Sennosides (Senokot) 17.2 mg Q12H PRN PO Moderate constipation; Start 11/09/17 at 01:45 Bisacodyl (Dulcolax Supp) 10 mg DAILY PRN RECTAL SEVERE CONSITIPATION/ IF NPO ; Start 11/09/17 at 01:45 Lactulose (Lactulose Liq) 30 ml DAILY PRN PO SEVERE CONSITIPATION IF PO; Start 11/09/17 at 01:45 Hydromorphone HCl (Dilaudid Pf Inj) 2 mg Q3H PRN IV PUSH pain 6-10 Last administered on 11/09/17at 11:35; Start 11/09/17 at 01:45 Amlodipine Besylate (Norvasc) 10 mg DAILY PO Last administered on 11/09/17at 07: 34; Start 11/09/17 at 09:00 Lisinopril (Prinivil) 20 mg DAILY PO Last administered on 11/09/17at 07:34; Start 11/09/17 at 09:00 Pravastatin Sodium (Pravachol) 40 mg DAILY PO Last administered on 11/09/17at 07 :34; Start 11/09/17 at 09:00 Prednisone (Deltasone) 3 mg DAILY PO ; Start 11/09/17 at 09:00 Sulfasalazine (Azulfidine Ec) 1,000 mg BID PO ; Start 11/09/17 at 09:00 Tamsulosin HCl (Flomax) 0.4 mg HS PO ; Start 11/09/17 at 21:00 Lactated Ringer's 1,000 ml @ 30 mls/hr Q24H PRN IV SEE LABEL COMMENTS; Start at 03:15; Stop 11/12/17 at 03:14 Sodium Chloride 500 ml @ 30 mls/hr [id number] PRN IV SEE LABEL COMMENTS; Start at 03:15; Stop 11/12/17 at 03:14 Metoprolol Tartrate (Lopressor) 25 mg WEB MERCHANDISER PRN PO SEE LABEL COMMENTS; Start 11/09/17 at 03:15; Stop 11/12/17 at 03:14 Povidone Iodine (Betadine 5% Antisepsis Kit) 1 applic WEB MERCHANDISER PRN EACH NARE SEE LABEL COMMENTS; Start 11/09/17 at 03:15; Stop 11/12/17 at 03:14 Chlorhexidine Gluconate (Chlorhexidine 2% Cloth) 3 pack WEB MERCHANDISER PRN TOPICAL SEE LABEL COMMENTS; Start 11/09/17 at 03:15; Stop 11/12/17 at 03:14 Insulin Human Regular (NovoLIN R INJ) See Protocol Table ... WEB MERCHANDISER PRN SQ SEE PROTOCOL TABLE; Start 11/09/17 at 03:15; Stop 11/12/17 at 03:14 Gentamicin Sulfate (Gentamicin Inj) 240 mg STK-MED ONCE .ROUTE Last administered on 11/09/17at 09:28; Start 11/09/17 at 08:10; Stop 11/09/17 at 08:11 ; Status DC Lactated Ringer's 1,000 ml @ 100 mls/hr Q10H IV ; Start 11/09/17 at 10:30 Miscellaneous Information (Post-op Orders (for Pharmacy)) STAT ONCE XX ; Start 11/09/17 at 11:00; Stop 11/09/17 at 11:01; Status DC Senna/Docusate Sodium (Maxine-Colace) 1 tab BID PO ; Start 11/09/17 at 21:00 Magnesium Hydroxide (Milk Of Magnesia Liq) 10 ml Q12H PRN PO CONSTIPATION; Start 11/09/17 at 10:30; Status UNV Cefazolin Sodium 1000 mg/Sodium Chloride 100 ml @ 200 mls/hr Q8H IV ; Start at 10:30; Stop 11/10/17 at 02:59; Status UNV Acetaminophen/ Hydrocodone Bitart (Pinole 7.5-325 Mg) 1 tab Q4H PRN PO PAIN LESS THAN 5 ON SCALE; Start 11/09/17 at 10:30 Acetaminophen/ Hydrocodone Bitart (Pinole 7.5-325 Mg) 2 tab Q6H PRN PO PAIN GREATER THAN/EQUAL TO 5; Start 11/09/17 at 10:30 Morphine Sulfate (Morphine Inj) 5 mg Q4H PRN IV PUSH BREAKTHROUGH PAIN; Start 11/09/17 at 10:30 Ondansetron HCl (Zofran Inj) 4 mg Q4H PRN IVP NAUSEA OR VOMITING; Start at 10:30; Status Cancel Calcium/Vitamin D (Oscal-D 250-125) 250 mg TID PO ; Start 11/09/17 at 13:00 Multivitamins/ Minerals Therapeutic (Theragran M Tab) 1 tab DAILY PO ; Start at 09:00 Diphenhydramine HCl (Benadryl) 25 mg Q6H PRN PO ITCHING; Start 11/09/17 at 10: 30 Naloxone HCl (Narcan Inj) 0.4 mg UNSCH PRN IV PUSH RESPIRATORY RATE LESS THAN 10; Start 11/09/17 at 10:30 Aspirin (Ecotrin Ec) 81 mg ONCE ONCE PO ; Start 11/09/17 at 10:30; Stop at 10:37; Status DC Aspirin (Ecotrin Ec) 81 mg BID PO ; Start 11/09/17 at 21:00 Meperidine HCl (*DEMEROL INJ PERIprocedural ONLY) 25 mg STK-MED ONCE .ROUTE Last administered on 11/09/17at 10:57; Start 11/09/17 at 10:57; Stop 11/09/17 at 10:58; Status DC Morphine Sulfate (Morphine Inj) 8 mg STK-MED ONCE .ROUTE ; Start 11/09/17 at 11: 02; Stop 11/09/17 at 11:03; Status DC Fentanyl Citrate (fentaNYL INJ) 200 mcg STK-MED ONCE .ROUTE ; Start 11/09/17 at 11:02; Stop 11/09/17 at 11:03; Status DC Midazolam HCl (Versed Inj) 2 mg STK-MED ONCE .ROUTE ; Start 11/09/17 at 11:02; Stop 11/09/17 at 11:03; Status DC Miscellaneous Information ALL NURSING DEPARTME... UNSCH PRN .XX SEE LABEL COMMENTS; Start 11/09/17 at 10:30; Stop 11/10/17 at 10:29 A/P Assessment and Plan Assessment/plan: 1. Bimalleolar right ankle fracture Status post trauma Dilaudid for pain Orthopedic surgery consulted, appreciate assistance SP SURGERY 11-09 2. Polymyalgia rheumatica Continuing home medications 3. Hypertension/hyperlipidemia Continue home medications HYPOKALEMIA REPLACE RENAL INSUFFICIENCY- FLUIDS DW RN AND PT Discharge Planning PENDING INCREASED MOBILITY Sridhar Muro DO Nov 09, 2017 12:43
[2017-11-09] MEDS ORDERED: POTASSIUM CHLORIDE 20 MEQ CONTROLLED RELEASE TAB PO ONE (13:00)
--- NOTE | 2017-11-09 13:22 | EKG ---
Date Performed: 11/09/2017 Time Performed: 05:18:22 PTAGE: 67 years EKG: Sinus rhythm . Left axis deviation Anterolateral T wave changes are nonspecific Borderline ECG PREVIOUS TRACING : 07/11/2014 20.13.50 Compared to previous tracing, T-wave changes anterolater ally are somewhat more prominent. DOCTOR: Micah Beyer Interpretating Date/Time 11/09/2017 13:22:03
[2017-11-09 13:25] VITALS: BP 154/82; PULSE 91; RESP 18; TEMP 97.8; O2SAT 95
[2017-11-09 16:00] VITALS: BP 145/65; PULSE 99; RESP 18; TEMP 99; O2SAT 100
[2017-11-09] MEDS: MULTIVITAMINS/MINERALS THERAPEUTIC TAB PO SCH (17:36)
[2017-11-09 19:56] VITALS: O2SAT 100
[2017-11-09 20:00] VITALS: BP 121/68; PULSE 97; RESP 20; TEMP 101.1; O2SAT 98
[2017-11-09] MEDS: DOCUSATE SODIUM 50 MG/SENNA 8.6 MG TAB PO SCH (20:37)
[2017-11-09] MEDS: ASPIRIN EC 81 MG TABEC PO SCH (20:37)
[2017-11-09] MEDS ORDERED: TAMSULOSIN HCL 0.4 MG CAP PO SCH (21:00)
[2017-11-10] VITALS: BP 110/53; PULSE 91; RESP 20; TEMP 99.1; O2SAT 95
[2017-11-10] MEDS: ACETAMINOPHEN/HYDROcodone 325 MG/7.5 MG TAB PO PRN ×2 (03:01→09:31)
[2017-11-10 04:00] VITALS: BP 121/58; PULSE 85; RESP 20; TEMP 99.3; O2SAT 94
[2017-11-10] MEDS: HYDROmorphone HCL PF 2 MG/ML VIAL IV PUSH PRN (05:55)
--- NOTE | 2017-11-10 06:50 | PD.ORT.PN ---
Subjective Subjective Remarks No complaints. Pain well controlled. No other injuries identified Objective Vitals Vital Signs Date Time Temp Pulse Resp B/P (MAP) Pulse Ox O2 Delivery O2 Flow Rate FiO2 11/10/17 04:00 99.3 85 20 121/58 (79) 94 11/10/17 00:00 99.1 91 20 110/53 (72) 95 11/09/17 20:35 95 Nasal Cannula 2.00 11/09/17 20:00 101.1 97 20 121/68 (85) 98 11/09/17 19:56 100 Nasal Cannula 4.00 11/09/17 16:00 99.0 99 18 145/65 (91) 100 11/09/17 13:25 97.8 91 18 154/82 (106) 95 11/09/17 11:45 84 16 126/64 (84) 96 Nasal Cannula 4 11/09/17 11:30 88 16 121/70 (87) 96 Nasal Cannula 4 11/09/17 11:15 89 16 126/73 (90) 97 Nasal Cannula 4 11/09/17 11:00 89 16 130/67 (88) 94 Nasal Cannula 4 11/09/17 10:53 98.6 90 16 139/69 (92) 91 Nasal Cannula 4 11/09/17 08:00 97.7 86 18 134/74 (94) 93 I/O 11/09/17 11/09/17 11/09/17 11/10/17 11/10/17 11/10/17 07:00 15:00 23:00 07:00 15:00 23:00 Intake Total 300 ml 1440 ml 400 ml Output Total 250 ml 1070 ml 600 ml 1000 ml Balance 50 ml 370 ml -600 ml -600 ml Intake Oral 0 ml 240 ml 400 ml IV Total 300 ml Other 1200 ml Output Urine Total 250 ml 1050 ml 600 ml 1000 ml Estimated Blood Loss 20 ml # Bowel Movements 0 0 0 Result Diagram: 11/09/17 0110 11/09/17 0110 Objective Remarks Right leg and splint. Capillary refill is satisfactory. Toes are warm. Wiggles his toes without difficulty Assessment & Plan Assessment and Plan Trimalleolar fracture of the right ankle. SURGERY: ORIF of the right ankle without posterior malleolar fixation: POD #1 PLAN: Nonweightbearing right leg. No dressing change. Ambulation with walker. [place] as needed for pain. Aspirin 81 mg twice a day for 30 days. Follow-up in 3 weeks. X-ray on return and probably placed in short leg nonweightbearing cast. Stable orthopedically for discharge Jose Gonzalez MD Nov 10, 2017 06:50
[2017-11-10 08:00] VITALS: BP 115/69; PULSE 90; RESP 18; TEMP 99; O2SAT 93
[2017-11-10 08:00] LABS: AUTOMATED NEUTROPHIL # 8.2 TH/MM3 (1.8-7.7); BASOPHIL % 0.3 % (0.0-2.0); EOSINOPHIL # 0.2 TH/MM3 (0-0.4); EOSINOPHIL % 1.2 % (0.0-4.0); HEMATOCRIT 38.1 % (39.0-51.0); HEMOGLOBIN 13.1 GM/DL (13.0-17.0); LYMPH % 18.9 % (9.0-44.0); LYMPHOCYTE # 2.4 TH/MM3 (1.0-4.8); MEAN CELL VOLUME 92.9 FL (80.0-100.0); MEAN CORPUSCULAR HGB CONC 34.4 % (32.0-36.0); MEAN PLATELET VOLUME 7.9 FL (7.0-11.0); MONO % 15.1 % (0.0-8.0); MONOCYTE # 1.9 TH/MM3 (0-0.9); NEUT % 64.5 % (16.0-70.0); PLATELET COUNT 160 TH/MM3 (150-450); RED BLOOD COUNT 4.09 MIL/MM3 (4.50-5.90); RED CELL DISTRIBUTION WIDTH 13.6 % (11.6-17.2); WHITE BLOOD COUNT 12.7 TH/MM3 (4.0-11.0)
[2017-11-10 08:25] LABS: ALBUMIN 3.2 GM/DL (3.4-5.0); AST (GOT) 23 U/L (15-37); BICARBONATE 31.5 MEQ/L (21.0-32.0); BLOOD UREA NITROGEN 10 MG/DL (7-18); CALCIUM 7.9 MG/DL (8.5-10.1); CHLORIDE 103 MEQ/L (98-107); CREATININE 1.03 MG/DL (0.60-1.30); GLOMERULAR FILTRATION RATE 72 ML/MIN (>89); GLUCOSE,RANDOM 93 MG/DL (74-106); SODIUM (NA) 139 MEQ/L (136-145)
[2017-11-10 08:36] LABS: ALKALINE PHOSPHATASE 62 U/L (45-117); ALT (GPT) 27 U/L (12-78); FREE T4 1.18 NG/DL (0.76-1.46); MAGNESIUM 1.9 MG/DL (1.5-2.5); PHOSPHORUS 1.8 MG/DL (2.5-4.9); TOTAL BILIRUBIN ADULT 0.6 MG/DL (0.2-1.0); TOTAL PROTEIN 6.2 GM/DL (6.4-8.2)
[2017-11-10 08:55] VITALS: O2SAT 94
[2017-11-10] MEDS: SODIUM CHLORIDE 0.9% FLUSH 10 ML FLUSH IV FLUSH SCH (09:00)
[2017-11-10] MEDS: MULTIVITAMINS/MINERALS THERAPEUTIC TAB PO SCH (09:00)
[2017-11-10] MEDS ORDERED: MULTIVITAMINS/MINERALS THERAPEUTIC TAB PO SCH (09:00)
[2017-11-10] MEDS: DOCUSATE SODIUM 50 MG/SENNA 8.6 MG TAB PO SCH (09:16)
[2017-11-10] MEDS: CALCIUM/VITAMIN D 250 MG/125 U TAB PO SCH ×2 (09:17→13:22)
[2017-11-10] MEDS: PRAVASTATIN SOD 40 MG TAB PO SCH (09:17)
[2017-11-10] MEDS: LISINOPRIL 20 MG TAB PO SCH (09:17)
[2017-11-10] MEDS: ASPIRIN EC 81 MG TABEC PO SCH (09:17)
[2017-11-10] MEDS: SODIUM CHLOR 0.9% 1000 ML INJ 1,000 ML IV SCH (09:18)
[2017-11-10] MEDS: sulfaSALAzine EC 500 MG TABEC PO SCH (11:07)
[2017-11-10] MEDS: predniSONE 1 MG TAB PO SCH (11:07)
--- NOTE | 2017-11-10 11:45 | HHI.PR ---
Subjective Remarks Patient states he has been ambulating to the bathroom with the walker. Eager to go home. Objective Vitals Vital Signs Date Time Temp Pulse Resp B/P (MAP) Pulse Ox O2 Delivery O2 Flow Rate FiO2 11/10/17 08:55 94 21 11/10/17 08:00 99.0 90 18 115/69 (84) 93 11/10/17 04:00 99.3 85 20 121/58 (79) 94 11/10/17 00:00 99.1 91 20 110/53 (72) 95 11/09/17 20:35 95 Nasal Cannula 2.00 11/09/17 20:00 101.1 97 20 121/68 (85) 98 11/09/17 19:56 100 Nasal Cannula 4.00 11/09/17 16:00 99.0 99 18 145/65 (91) 100 11/09/17 13:25 97.8 91 18 154/82 (106) 95 I/O 11/09/17 11/09/17 11/09/17 11/10/17 11/10/17 11/10/17 07:00 15:00 23:00 07:00 15:00 23:00 Intake Total 300 ml 1440 ml 400 ml 90 ml Output Total 250 ml 1070 ml 600 ml 1000 ml Balance 50 ml 370 ml -600 ml -600 ml 90 ml Intake Oral 0 ml 240 ml 400 ml IV Total 300 ml 90 ml Other 1200 ml Output Urine Total 250 ml 1050 ml 600 ml 1000 ml Estimated Blood Loss 20 ml # Bowel Movements 0 0 0 Result Diagram: 11/10/1770611/10/17706 Objective Remarks GENERAL: This is a well-nourished, well-developed patient, in no apparent distress. CARDIOVASCULAR: Normal rate and regular rhythm without murmurs, gallops, or rubs. RESPIRATORY: Good respiratory efforts. Breath sounds equal and clear to auscultation bilaterally. GASTROINTESTINAL: Abdomen soft, non-tender, non-distended. Normal active bowel sounds MUSCULOSKELETAL: Right lower extremity postop. Rc wrap. Neurovascularly intact distally. NEURO: Alert & Oriented x4 to person, place, time, situation. Moves all ext x4 PSYCH: Appropriate mood and affect. Procedures Date of Surgery: Nov 09, 2017 Preoperative Diagnosis: Trimalleolar fracture, right ankle Postoperative Diagnosis: Same Procedure: Open treatment internal fixation right ankle trimalleolar fracture without fixation of the posterior malleolus A/P Assessment and Plan 1. Bimalleolar right ankle fracture Status post trauma Patient followed by orthopedic status post repair. He is cleared for discharge from orthopedic standpoint. 2. Polymyalgia rheumatica Continuing home medications 3. Hypertension/hyperlipidemia Continue home medications Discharge Planning Discharge home in good condition Diet: Heart healthy Activity: Nonweightbearing right lower extremity per orthopedics Meds: Per med rec Follow up with: Orthopedics Leonila Liu MD Nov 10, 2017 11:45
[2017-11-10] MEDS ORDERED: WALKER WHEELS/F1 MIS (11:47)
[2017-11-10 12:00] VITALS: BP 130/58; PULSE 92; RESP 18; TEMP 97.9; O2SAT 95
[2017-11-10] MEDS ORDERED: BEDSIDE COMMODE1 MI1 (15:53)
[2017-11-10 15:58] VITALS: BP 132/66; PULSE 94; RESP 18; TEMP 98.7; O2SAT 93
== END 2017-11-10 16:10 | disposition home or self-care (01) | DRG 493 ==
LOC: NEPD 22:01 → NEDA 11-09 01:12 → OBSVTOIN 11-09 01:44 → N06B 11-09 02:54
PROVIDERS: ADMIT Family Medicine; ATTEND Family Medicine
PROC: 0QSG04Z Reposition Right Tibia with Internal Fixation Device, Open Approach (ICD-10-PCS; 2017-11-09)
PROC: 0QSJ04Z Reposition Right Fibula with Internal Fixation Device, Open Approach (ICD-10-PCS; principal; 2017-11-09 08:52)
DX: S82.841A Displaced bimalleolar fracture of right lower leg, initial encounter for closed fracture (principal); W23.1XXA Caught, crushed, jammed, or pinched between stationary objects, initial encounter; W01.0XXA Fall on same level from slipping, tripping and stumbling without subsequent striking against object, initial encounter; Y92.008 Other place in unspecified non-institutional (private) residence as the place of occurrence of the external cause; Y93.89 Activity, other specified; N17.9 Acute kidney failure, unspecified; C95.91 Leukemia, unspecified, in remission; I10 Essential (primary) hypertension; M35.3 Polymyalgia rheumatica; E78.5 Hyperlipidemia, unspecified; E87.6 Hypokalemia; Z87.891 Personal history of nicotine dependence
CPT/HCPCS: 73590; 73600; 73610; 76000; 80048; 80053; 83036; 83735; 84100; 84439; 84443; 85025; 85610; 85730; 93005; 94150; 96374; 96375; C1713; J0690; J1170; J1580; J2175; J2250; J2270; J2370; J2405; J3010; J7030; J7120; J7512